=== PATIENT | female | born 1945 | race Caucasian/White ===

== ENCOUNTER 2017-10-21 11:06 | Day surgery (SDC) | payer MEDICARE, OTHER ==
[~2017-10-21] VITALS: Ht 170.2 cm; Wt 106.0 kg
[2017-10-21] MEDS ORDERED: IOHEXOL 350 MG/ML 100 ML BTL (for Cath Lab) OTHER ONE (11:07)
[2017-10-21 11:46] VITALS: BP 158/76; PULSE 73; RESP 18; TEMP 98.8; O2SAT 96
[2017-10-21] MEDS ORDERED: PLAV75TA29 PO (11:54)
[2017-10-21] MEDS ORDERED: ENAL10TA PO (11:54)
[2017-10-21] MEDS ORDERED: LIPI20TA PO (11:54)
[2017-10-21] MEDS ORDERED: NS 1000P @30 MLS/HR (KVO) IV SCH (12:00)
[2017-10-21 12:09] LABS: AUTOMATED NEUTROPHIL # 4.1 TH/MM3 (1.8-7.7); BASOPHIL % 0.7 % (0.0-2.0); EOSINOPHIL # 0.1 TH/MM3 (0-0.4); EOSINOPHIL % 0.9 % (0.0-4.0); HEMATOCRIT 38.6 % (35.0-46.0); LYMPH % 29.8 % (9.0-44.0); MEAN CELL VOLUME 93.5 FL (80.0-100.0); MEAN CORPUSCULAR HEMOGLOBIN 31.5 PG (27.0-34.0); MEAN CORPUSCULAR HGB CONC 33.6 % (32.0-36.0); MEAN PLATELET VOLUME 9.4 FL (7.0-11.0); MONO % 7.3 % (0.0-8.0); MONOCYTE # 0.5 TH/MM3 (0-0.9); NEUT % 61.3 % (16.0-70.0); PLATELET COUNT 264 TH/MM3 (150-450); RED BLOOD COUNT 4.13 MIL/MM3 (4.00-5.30); RED CELL DISTRIBUTION WIDTH 13.6 % (11.6-17.2); WHITE BLOOD COUNT 6.8 TH/MM3 (4.0-11.0)
[2017-10-21 12:21] LABS: PROTHROMBIN TIME - PATIENT 10.6 SEC (9.8-11.6)
[2017-10-21 12:22] LABS: BICARBONATE 24.7 MEQ/L (21.0-32.0); CALCIUM 8.6 MG/DL (8.5-10.1); CREATININE 0.65 MG/DL (0.50-1.00)
[2017-10-21] MEDS ORDERED: HEPARIN-NS/PF INJ 1,000 ML ONE (13:22)
[2017-10-21] MEDS ORDERED: HEPARIN SODIUM - IV 10,000 UNITS/10 ML VIAL ONE (13:35)
[2017-10-21] MEDS ORDERED: VERAPAMIL HCL 5 MG/2 ML VIAL ONE (13:35)
[2017-10-21] MEDS ORDERED: MIDAZOLAM HCL 2 MG/2 ML VIAL ONE (13:49)
--- NOTE | 2017-10-21 14:23 | CATHPROC ---
[facility] HIS Report Study Information Study Number Admission Scheduled Start Study Start [id number] Oct 21 2017 11:06AM 10/21/2017 Oct 21 2017 1:16PM Study Type [place] Service Left/Possible PCI Cardiac Catheterization Admit Source Facility Department Other [facility] Lever Operator Physician and Clinical Staff Initial Adrian Gaffney Deputy Building Guard Avni Kent,PIO Recorder Myriam Faye,HAT BLOCKING MACHINE OPERATOR TECH2 Scrub Matt Segundo,RT(R) Procedures Performed Procedure Location (Site) Vessel Name Coronary Angiograms LCA Left Coronary Coronary Angiograms RCA Right Coronary Coronary Angiograms Brach. Art. (right) Brachial Art. L Heart Cath LV Gram-hand inj. LV LV Ventricle Wire insertion Fem Art (right) Femoral Art Wire insertion Radial (right) Radial Art. Equipment Time Hog Scraper Description Size Mfg Part Number Used/Scraped TRANSDUCER, TRUWAVE [id number] 13:57 BOOGIE DELEON * Used W/STOCKCOCK *[id number] 13:57 [employer] PACK, CCL CUSTOM * Used *[id number] 13:57 [employer] SUPPORT, ARTERIAL ADULT [id number] *[id number] Used [id number] 13:57 [employer] PACER PEN, SKIN DUAL W/ RULER * Used *[id number] BAND, RADIAL COMPRESSION TR [id number] 14:22 [employer] MEDICAL 24CM Used SHORT 24 *[id number] 13:57 [employer] MEDICAL WIRE, EXCHANGE 260CM 3MMJ 260CM Used *[id number] 13:57 NAMIC MANIFOLD, 4 PORT * Used *[id number] 13:57 NAMIC TUBING, HIGH PRESSURE 20" 20" Used *[id number] 13:57 NYCOMED OMNIPAQUE, 350 MG, 150ML 150ML [id number] Used [id number] 13:57 PATRICK [employer] BLANKET,WARM AIR CCL * Used *[id number] CATHETER, FR5 OPTITORQUE [id number] 13:57 [employer] FR 5 Used RADIAL TIG 4.0 *[id number] SHEATH, FR6 TRANSRADIAL RM*[id number] 13:55 [employer] FR 6 Used SLENDER 10CM *[id number] SHEATH, FR6 TRANSRADIAL RM*[id number] 13:57 [employer] FR 6 Used SLENDER 10CM *[id number] WIRE, ANGLED GLIDE .035 [id number] 13:56 [employer] MEDICAL/[place] 260CM Used 260CM *[id number] History: Current Medications Medication Dosage/Unit Route Frequency Last Date/Time Taken ASA CARVEDILOL PLAVIX LIPITOR VASOTEC History: Allergies Allergy Reaction No Known Allergies History: Risk Factors Family History of Hypertension Dyslipidemia Previous [place] Previous Heart Failure Premature CAD Yes Yes No No No Prior Valve Prior PCI Prior CABG Surgery No No No Cerebrovascular Peripheral Artery Chronic Lung On Dialysis Diabetes Disease Disease Disease No Yes No No No History: Symptoms/Diagnosis Selection Items Chest pain SOB History: Stress Tests Stress or Imaging Studies Performed Yes Standard Exercise Stress Test No Stress Echo No Stress Test SPECT Stress Test SPECT Result Stress Test SPECT Ischemia Risk/Extent Yes Positive Intermediate Stress Test CMR No Cardiac CTA Coronary Calcium Score No No History: Other Disease Selection Items Cancer History: Other Current Smoker Method Yes Cigarettes Labs Hgb (g/dl) Hct (%) RBC (MIL/MM3) WBC (l/cumm) Platelets (thousands) 11.60-17.00 35.00-51.00 4.00-5.90 4.00-11.00 150.00-450.00 13.0 38.6 4.1 6.8 264 Glucose (mg/dl) BUN (mg/dl) Creatinine (mg/dl) BUN:Creatinine (1:x) 74.00-106.00 7.00-18.00 0.50-1.30 10.00-20.00 109 12 0.6 20 Na (meq/l) K (meq/l) Cl (meq/l) CO2 (mmol/L) 136.00-145.00 3.50-5.10 98.00-107.00 21.00-32.00 145 3.7 112 24.7 PT (sec) INR (PTT:PT) 9.80-11.60 0.90-1.10 10.6 1 CPK-MB (ng/ML) 0.50-3.60 Not Drawn Medication Medication Total Dose (Bolus/Oral) Medication Total Dosage/Unit 1% XYLOCAINE 10 mL RADIAL COCKTAIL 5 mL (Bolus) VERSED 2 mg Medications (Bolus/Oral) Medication Time Given Dosage/Unit Administered By Reason VERSED 10/21/2017 1:50:52 PM 2 mg Avni Kent 2 mg VERSED given in lab by Avni Kent RN in Left Antecubital via Peripheral IV. Ordered by Adrian Nugent. 1% XYLOCAINE 10/21/2017 1:52:04 PM 10 mL Adrian Corrigan 10 mL 1% XYLOCAINE given in lab by Adrian Corrigan in Right Radial via Subcutaneous. Ntg 200mcg Verapamil 2.5mg Heparin RADIAL COCKTAIL 10/21/2017 1:55:06 PM 5 mL (Bolus) Kirk Corriganher 2000U 5 mL (Bolus) RADIAL COCKTAIL given in lab by Adrian Corrigan in Right Radial via Radial. Using [Solutio n Name]. Ordered by Adrian Corrigan. Reason: Ntg 200mcg Verapamil 2.5mg Heparin 2000U. Medication (Drip) Medication Time Given Dosage/Unit Concentration/Unit Diluent (ml) Solution IV Solutions 10/21/2017 1:25:25 PM 50 mL (IV) 500 NaCl .9 Patient arrived on IV Solutions in Left Antecubital via Peripheral IV. Pump/Drip Flow using NaCl .9. Initial Case Assessment Cardiovascular HR NIBP Chest Pain 68 191/84 0 Circulatory - Right Pulses Dorsalis Pedis Radial 2 2 Scale (0,1,2,3,4,d) Circulatory - Left Pulses Dorsalis Pedis Radial 1 Scale (0,1,2,3,4,d) Neurological State Oriented to time-place- Alert Moves all extremities person Respiration - General Respiration Rate SpO2 (%) (B/min) 14 97 Final Case Assessment Cardiovascular HR Rhythm Chest Pain 62 a fib 0 Circulatory - Right Pulses Dorsalis Pedis Radial 1 2 Scale (0,1,2,3,4,d) Circulatory - Left Pulses Dorsalis Pedis Radial 1 Scale (0,1,2,3,4,d) Neurological State Oriented to time-place- Alert Moves all extremities person Respiration - General Respiration Rate SpO2 (%) (B/min) 18 96 Chronological Log Time Study Chronological Log 13:20:17 Patient arrived via Bed. 13:20:24 Patient Name, D.O.B, / Armband Verified By R.N. 13:21:30 Pre-op and post- op instructions given; patient acknowledges understanding of instructions. 13:21:35 Verbal Stimulation=2 Physical Stimulation=2 Airway=2 Respiration=2 TOTAL=8. (0=absent, 1=li mited, 2=present) 13:24:10 Presedation assessment performed by Dredge Lever Operator RN. 13:24:10 Allens test performed on the right radial and ulnar artery. 13:24:21 Skin Breakdown-none 13:24:24 Kade Prominences Protected 13:25:20 Patient has been NPO for More than 6Hrs. 13:25:25 A # 20 IV was noted in the Antecubital (left). Grade = patent 13:25:25 Patient arrived on IV Solutions in Left Antecubital via Peripheral IV. Pump/Drip Flow using NaCl .9. 13:26:27 History and physical on the chart or being dictated. Vitals capture started with the following parameters, Patient=Adult, Interval=5 min, Initial Pr fpnxwt=390 mmHg, 13:29:20 Deflation Rate=5 mmHg, Cuff placed on Right Arm 13:30:51 HR=68 bpm, KEVX=656/84 mmhg, SpO2=97.0 %, Resp=14 B/min Assessment: Initial Case, HR=68 BPM, HZJO=072/84 mmhg, Chest Pain=0 Right Pulses: Oneil Ped=2, Radial=2 13:30:52 Left Pulses: Oneil Ped=1 Neurological: State=Alert, Ox3, UMANZOR Respiration: Resp=14 B/min, SpO2=97 % 13:36:02 HR=54 bpm, XPGY=350/73 mmhg, SpO2=97.0 %, Resp=23 B/min 13:38:02 Reference ECG taken 13:39:23 Right Radial and right groin prepped with 2% chlorhexidine, and draped after a 3 min. waiti ng time. 13:40:59 HR=65 bpm, MHAP=543/52 mmhg, SpO2=97.0 %, Resp=24 B/min 13:45:19 HR=61 bpm, FQRF=827/63 mmhg, SpO2=98.0 %, Resp=16 B/min 13:45:37 MD paged 13:47:38 MD arrived. 13:50:09 Pressure channel 1 zeroed. 13:50:52 2 mg VERSED given in lab by Avni Kent, RN in Left Antecubital via Peripheral IV. Ordere d by Adrian Corrigan. 13:50:59 HR=68 bpm, QLYR=410/48 mmhg, SpO2=97.0 %, Resp=16 B/min Time Out. Correct patient, correct procedure, correct physician, power injector loaded, or not loaded with contrast with 13:52:01 surgical team present. Time Out Concurred by MD and individual staff in procedure. 13:52:04 10 mL 1% XYLOCAINE given in lab by Adrian Corrigan in Right Radial via Subcutaneous. 13:53:03 Case Start 13:54:18 Access site was Radial Artery. right A SHEATH, FR6 TRANSRADIAL SLENDER 10CM FR 6 was advanced into the Fem Art (right) using the Per cutaneous 13:54:39 technique. 5 mL (Bolus) RADIAL COCKTAIL given in lab by Adrian Corrigan in Right Radial via Radial. Using [S olution Name]. Ordered 13:55:06 by Adrian Corrigan. Reason: Ntg 200mcg Verapamil 2.5mg Heparin 2000U. 13:55:09 HR=80 bpm, KHBX=867/75 mmhg, SpO2=95.0 %, Resp=20 B/min 13:56:01 A CATHETER, FR5 OPTITORQUE RADIAL TIG 4.0 FR 5 was advanced over a wire. contrast was used for injections. 13:57:30 The Brach. Art. (right) was injected and visualized at various angles. OMNIPAQUE, 350 MG, 1 50ML 150ML used. 13:57:46 A WIRE, ANGLED GLIDE .035 260CM 260CM was inserted via Fem Art (right). 13:57:56 Catheter advanced and wire removed 13:58:05 The LCA was injected and visualized at various angles. OMNIPAQUE, 350 MG, 150ML 150ML use d. Recorded Pressure: Ao, HR=64, Condition=Condition 1 13:58:32 (Aorta) Ao 160/63/102 14:00:10 HR=62 bpm, EZKL=071/72 mmhg, SpO2=97 %, Resp=20 B/min 14:00:14 The RCA was injected and visualized at various angles. OMNIPAQUE, 350 MG, 150ML 150ML use d. 14:01:11 A WIRE, EXCHANGE 260CM 3MMJ 260CM was inserted via Radial (right). Recorded Pressure: LV, HR=88, Condition=Condition 1 14:01:43 (Left Ventricle) LV 124/6/17 Recorded Pressure: LV, Ao, HR=65, Condition=Condition 1 14:02:02 (Left Ventricle) LV 139/26/64, (Aorta) Ao 190/-30/55 14:02:11 The LV was manually injected with 10 cc's and visualized. OMNIPAQUE, 350 MG, 150ML 150ML u sed. 14:02:23 Catheter was removed 14:03:05 Case End Assessment: Final Case, HR=62 BPM, Rhythm=a fib, Chest Pain=0 Right Pulses: Oneil Ped=1, Radial=2 14:04:24 Left Pulses: Oneil Ped=1 Neurological: State=Alert, Ox3, UMANZOR Respiration: Resp=18 B/min, SpO2=96 % Radial Compression Device Used. 10 mLs of air placed in BAND, RADIAL COMPRESSION TR SHORT 24 2 4CM. Affected 14:05:06 hand 95 % O2 saturation. 14:05:13 HR=63 bpm, TRXG=788/74 mmhg, SpO2=96.0 %, Resp=12 B/min, Pain=0, [place]=2 14:05:34 No case complications noted. 14:05:35 Cine recording checked. 14:05:36 Bedside Report will be given. 14:05:41 Contrast Scanned 14:05:47 A Left Heart Cath was performed. 14:09:16 Patient moved to bed 14:09:37 Vitals capture stopped. 14:10:50 Patient transported to DOCU. End Study - Contrast Media Used In Study Contrast Total Opened (mL) Total Used (mL) Total Wasted (mL) Omnipaque 60 60 0 End Study - Maximum Contrast Load Max Contrast Load (mL) 883.3 End Study - Radiation Exposure Fluoro Time (minutes) 3.2 End Study - Sheaths Sheaths Pulled By Sheath Hold Time (min) Matt Segundo End Study - Patient Disposition Complications Transferred To Interventional Outcome No Telemetry Bed No attempt made
[2017-10-21] MEDS ORDERED: SODIUM CHLOR 0.9% 1000 ML INJ 400 ML IV ONE (14:30)
--- NOTE | 2017-10-21 15:13 | MA ---
cc: ANAMIKA DUQUE M.D. DATE: 10/21/2017 INDICATION Chest pain, positive stress test for ischemia, diabetes and tobacco abuse. PROCEDURE PERFORMED Left heart catheterization, coronary angiogram, left ventriculogram. PROCEDURE NOTE After obtaining informed consent, the patient in a fasting state was brought to the scientific laboratory supervisor. The right radial area was sterilized and draped with sterile drapes. 1% Xylocaine was used to locally anesthetize the area. A 5 [place] sheath was used to access the right radial artery. A tiger catheter 5-[place] was used to intubate the left main and to intubate the right coronary artery, performed the left ventriculogram and the pressure measurements. At the end of the procedure the sheath was taken out and TR band applied. She was sent back to her room in stable condition. There were no complications. CORONARY ANGIOGRAM The left main coronary artery is a small to medium size vessel which bifurcates into the left anterior descending artery and left circumflex coronary artery. The left main has no significant disease. The left anterior descending coronary artery and branches show no significant disease. The left circumflex coronary artery and branches show no significant disease. The right coronary artery is dominant and there was no significant disease. LEFT VENTRICULOGRAM The ejection fraction is estimated to be within normal limits about 55%. No significant pressure across the aortic valve. Left ventricular end-diastolic pressure is 14. Aortic pressure is 140/__. Medical management to continue. She was sent back to her room in stable condition. POSTOPERATIVE DIAGNOSIS No significant coronary artery disease. There was LV systolic performance of the left ventricles. MD TERELL Gaines/GRUPO /2:04 PM /2:40 PM
--- NOTE | 2017-10-22 14:29 | EKG ---
Date Performed: 10/21/2017 Time Performed: 12:00:50 PTAGE: 72 years EKG: Sinus rhythm with PAC(s). Lateral T wave changes are nonspecific Borderline ECG NO PREVIOUS TRACING DOCTOR: Mary Kay Rushing Interpretating Date/Time 10/22/2017 14:28:44
== END 2017-10-21 17:35 | disposition home or self-care (01) ==
LOC: HDOC 11:06 → HDIC 11:06 → HDOC 17:35
PROVIDERS: ATTEND Internal Medicine Cardiovascular Disease
DX: R07.9 Chest pain, unspecified (principal); R94.39 Abnormal result of other cardiovascular function study; I20.0 Unstable angina; I10 Essential (primary) hypertension; E78.5 Hyperlipidemia, unspecified; E10.65 Type 1 diabetes mellitus with hyperglycemia; G45.9 Transient cerebral ischemic attack, unspecified; F17.200 Nicotine dependence, unspecified, uncomplicated
CPT/HCPCS: 80048; 85025; 85610; 85730; 93005; 93458; 99152; C1769; C1893; J1644; J2250; Q9967